=== PATIENT | female | born 1995 | race Asian ===

== ENCOUNTER 2018-09-27 09:08 | Emergency (ER) | payer BC ==
[2018-09-27] MEDS ORDERED: Lidocaine 1% INJ* 10 MG/ML 30 ML SDV INJ ONE (09:19)
--- NOTE | 2018-09-27 09:25 | ED ---
Skin Complaint - HPI Summary HPI Summary: 23-year-old female presents with infection to the left great toe for the couple days. She states area has been swelling more. placed heat on the area and made the pain worse. She says pain has been increasing. Never had this before. Has no medical conditions. No fevers or chills. He is still able to ambulate but has been having increasing pain. - History of Current Complaint Chief Complaint: EDExtremityLower Time Seen by Provider: 09/27/18 09:14 Stated Complaint: LT FOOT BLISTER PER PT Pain Intensity: 7 - Allergy/Home Medications Allergies/Adverse Reactions: Allergies Allergy/AdvReac Type Severity Reaction Status Date / Time No Known Allergies Allergy Verified 09/27/18 09:10 PMH/Surg Hx/FS Hx/Imm Hx Endocrine/Hematology History: Denies: Hx Anticoagulant Therapy Respiratory History: Denies: Hx Asthma Infectious Disease History: No Infectious Disease History: Denies: Traveled Outside the [place] in Last 30 Days - Family History Known Family History: Negative: Diabetes - Social History Alcohol Use: Occasionally Substance Use Type: Reports: None Smoking Status (MU): Never Smoked Tobacco Review of Systems Negative: Fever Negative: Chest Pain Negative: Shortness Of Breath Positive: Rash All Other Systems Reviewed And Are Negative: Yes Physical Exam Triage Information Reviewed: Yes Vital Signs On Initial Exam: Initial Vitals Temp Pulse Resp BP Pulse Ox 98.5 F 67 16 117/77 100 09/27/18 09:09 09/27/18 09:09 09/27/18 09:09 09/27/18 09:09 09/27/18 09:09 Vital Signs Reviewed: Yes Appearance: Positive: Well-Appearing Skin: Positive: Warm, Dry, Other - erythema with pus near nailbed left foot Eyes: Positive: Normal, Conjunctiva Clear ENT: Positive: Pharynx normal Respiratory/Lung Sounds: Positive: Clear to Auscultation, Breath Sounds Present Cardiovascular: Positive: Normal, RRR Musculoskeletal: Positive: Strength/ROM Intact - left foot Neurological: Positive: Normal Psychiatric: Positive: Normal Procedures - Incision and Drainage foot Site: left foot Anesthesia: Local Instrument(s): Scalpel Diagnostics - Vital Signs Vital Signs Temp Pulse Resp BP Pulse Ox 09/27/18 09:09 98.5 F 67 16 117/77 100 - Laboratory Lab Statement: Any lab studies that have been ordered have been reviewed, and results considered in the medical decision making process. Course/Dx - Course Course Of Treatment: 23-year-old female presents with infection to the left great toe for the couple days. She states area has been swelling more. placed heat on the area and made the pain worse. She says pain has been increasing. Never had this before. Has no medical conditions. No fevers or chills. He is still able to ambulate but has been having increasing pain. On exam has paronychia present on left great toe. performed I&D and got copious amount of pus. sent for culture. will place on bactrim. patient understand and agrees with plan. - Differential Diagnoses - Skin Complaint Differential Diagnoses: Abscess, Cellulitis, Contact Dermatitis - Diagnoses Provider Diagnoses: Paronychia Discharge - Sign-Out/Discharge Documenting (check all that apply): Patient Departure Patient Received Moderate/Deep Sedation with Procedure: No - Discharge Plan Condition: Good Disposition: HOME Prescriptions: Sulfamethox/Trimethoprim DS* [Bactrim DS 800/160 TAB*] 1 tab PO BID #19 tab Patient Education Materials: Paronychia (ED) Additional Instructions: Do warms soaks of area at least twice a day Take antibiotic twice a day for 10 days Follow up with primary within 5 days Return to ED if develop any new or worsening symptoms - Billing Disposition and Condition Condition: GOOD Disposition: Home
[2018-09-27] MEDS ORDERED: Sulfamethox/Trimethoprim DS 800/160* TAB PO ONE (09:32)
[2018-09-27 10:26] VITALS: BP 83/54
--- NOTE | 2018-09-29 06:30 | PN ---
Progress Note - Progress Note Date of Service: 09/29/18 Note: Patient placed on Bactrim. preliminary culture grew Staph. Will wait for final culture for sensitivity.
--- NOTE | 2018-09-30 05:50 | PN ---
Progress Note - Progress Note Date of Service: 09/30/18 Note: patient wound culture grew staph will add on keflex twice a day for 7 days to the bactrim. spoke with patient about addition of medication.
== END 2018-09-27 10:26 | disposition home or self-care (01) ==
LOC: ED 09:08
DX: L03.032 Cellulitis of left toe (principal)
CPT/HCPCS: 10060; 87070; 87076; 87077; 87186; 87205; 87640; 87641; 96372; 99282; A9270-GY